=== PATIENT | male | born 1945 | race Caucasian/White ===

== ENCOUNTER 2025-02-25 11:53 | Day surgery (SDC) | payer MEDICARE, BC ==
[~2025-02-25] VITALS: Ht 175.3 cm; Wt 58.5 kg
[~2025-02-25 11:53] MED LIST: ASCO500C3 PO; ATOR1TAB19 PO; B-12100010 PO; CYCLOPENTOLATE 1% OPHTH SOLN 2 ML BTL OD SCH; ECOT81TA5 PO; FLURBIPROFEN 0.03% OPHTH SOLN 2.5 ML OD SCH; IRON65TA2 PO; KP F1200 PO; LEVE750T5 PO; LR 1,000 ML IV SCH; MIDAZOLAM INJ 2 MG/2 ML VIAL As Ordered ONE; MOVE1TAB PO; MULTTAB61 PO; PHENYLEPHRINE 2.5% OPHTH SOL 2ML OD SCH; PRES10CA2 PO; PREVAGEN; SYNT25TA PO; TETRACAINE 0.5% OPHTH SOLN 4ML OD SCH; VITA100093 PO; [UNRECOGNIZED DRUG - CODE] PO
[2025-02-25] MEDS: LIDOCAINE 1% SDV 5 ML VIAL As Ordered ONE (15:51)
[2025-02-25] MEDS: CEFUROXIME 1 MG/0.1 ML INTRACAMERAL INJ As Ordered ONE (15:53)
[2025-02-25 16:10] VITALS: BP 149/65; TEMP 97.6; O2SAT 100
== END 2025-02-25 17:08 | disposition home or self-care (01) ==
LOC: M SDC 11:53
PROVIDERS: ATTEND Ophthalmology
DX: H25.11 Age-related nuclear cataract, right eye (principal); E78.00 Pure hypercholesterolemia, unspecified; E03.9 Hypothyroidism, unspecified; Z79.890 Hormone replacement therapy; Z79.899 Other long term (current) drug therapy; Z79.82 Long term (current) use of aspirin; F17.290 Nicotine dependence, other tobacco product, uncomplicated; Z85.118 Personal history of other malignant neoplasm of bronchus and lung; Z85.89 Personal history of malignant neoplasm of other organs and systems
CPT/HCPCS: 66984; J0697; J2250; V2632

== ENCOUNTER 2025-05-06 11:53 | Day surgery (SDC) | payer MEDICARE, BC ==
[~2025-05-06] VITALS: Ht 170.2 cm; Wt 59.9 kg
[~2025-05-06 11:53] MED LIST changes: +BRIM0.2S13; -CYCLOPENTOLATE 1% OPHTH SOLN 2 ML BTL OD SCH; -FLURBIPROFEN 0.03% OPHTH SOLN 2.5 ML OD SCH; -MIDAZOLAM INJ 2 MG/2 ML VIAL As Ordered ONE; -PHENYLEPHRINE 2.5% OPHTH SOL 2ML OD SCH; +SYST1SOL4 OP; -TETRACAINE 0.5% OPHTH SOLN 4ML OD SCH; +TRAM50TA2 PO
[2025-05-06] MEDS: CYCLOPENTOLATE 1% OPHTH SOLN 2 ML BTL OS SCH (13:10)
[2025-05-06] MEDS ORDERED: MIDAZOLAM INJ 2 MG/2 ML VIAL As Ordered ONE (13:10)
[2025-05-06] MEDS: PHENYLEPHRINE 2.5% OPHTH SOL 2ML OS SCH (13:10)
[2025-05-06] MEDS: FLURBIPROFEN 0.03% OPHTH SOLN 2.5 ML OS SCH (13:10)
[2025-05-06] MEDS: TETRACAINE 0.5% OPHTH SOLN 4ML OS SCH (13:10)
[2025-05-06] MEDS: LIDOCAINE 1% SDV 5 ML VIAL As Ordered ONE (14:31)
[2025-05-06] MEDS: CEFUROXIME 1 MG/0.1 ML INTRACAMERAL INJ As Ordered ONE (14:31)
[2025-05-06 15:35] VITALS: BP 108/54; TEMP 97.8; O2SAT 98
== END 2025-05-06 15:35 | disposition home or self-care (01) ==
LOC: M SDC 11:53
PROVIDERS: ATTEND Ophthalmology
DX: H25.12 Age-related nuclear cataract, left eye (principal); E03.9 Hypothyroidism, unspecified; E78.00 Pure hypercholesterolemia, unspecified; D64.9 Anemia, unspecified; Z79.899 Other long term (current) drug therapy; Z79.890 Hormone replacement therapy; F17.290 Nicotine dependence, other tobacco product, uncomplicated; Z85.49 Personal history of malignant neoplasm of other male genital organs; Z92.21 Personal history of antineoplastic chemotherapy; Z92.3 Personal history of irradiation; Z98.41 Cataract extraction status, right eye
CPT/HCPCS: 66984; J0697; J2250; J3010; V2632